=== PATIENT | female | born 1990 | race Caucasian/White ===

== ENCOUNTER → 2024-04-01 07:41 | Outpatient (REF) | payer OTHER, SELFPAY | LOC: PNTC 07:41 | PROVIDERS: ATTENDING PHYSICIAN Student in an Organized Health Care Education/Training Program | DX: Z36.0 Encounter for antenatal screening for chromosomal anomalies (principal); Z36.82 Encounter for antenatal screening for nuchal translucency | CPT/HCPCS: 36415; 76801; 76813 ==

== ENCOUNTER → 2024-05-27 15:22 | Outpatient (REF) | payer OTHER, SELFPAY | LOC: PNTC 15:22 | PROVIDERS: ATTENDING PHYSICIAN Student in an Organized Health Care Education/Training Program | DX: Z36.0 Encounter for antenatal screening for chromosomal anomalies (principal); Q27.0 Congenital absence and hypoplasia of umbilical artery; O28.3 Abnormal ultrasonic finding on antenatal screening of mother | CPT/HCPCS: 76811 ==

== ENCOUNTER → 2024-06-24 15:12 | Outpatient (REF) | payer OTHER, SELFPAY | LOC: PNTC 15:12 | PROVIDERS: ATTENDING PHYSICIAN Student in an Organized Health Care Education/Training Program | DX: Q27.0 Congenital absence and hypoplasia of umbilical artery (principal) | CPT/HCPCS: 76816 ==

== ENCOUNTER → 2024-07-22 16:15 | Outpatient (REF) | payer OTHER, SELFPAY | LOC: PNTC 16:15 | PROVIDERS: ATTENDING PHYSICIAN Obstetrics & Gynecology | DX: O69.2XX0 Labor and delivery complicated by other cord entanglement, with compression, not applicable or unspecified (principal); O69.5XX0 Labor and delivery complicated by vascular lesion of cord, not applicable or unspecified | CPT/HCPCS: 76816 ==

== ENCOUNTER 2024-07-25 10:17 | Emergency (ER) | payer SELFPAY ==
[2024-07-25 10:27] VITALS: BP 160/108
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
[2024-07-25 11:25] LABS: % Basophils 0.2 % (0-2); % Eosinophils 0.7 % (0-6); % Immature Granulocytes 0.5 % (0-0.5); % Lymphocytes 10.3 % (20.5-51.1); % Monocytes 5.5 % (1.7-9.3); % Neutrophils 82.8 % (42.2-75.2); Absolute Eosinophils 0.1 10^3/uL (0-0.7); Absolute Immature Granulocytes 0.1 10^3/uL (0-0.05); Absolute Lymphocytes 1.3 10^3/uL (1.2-3.4); Absolute Monocytes 0.7 10^3/uL (0.1-0.6); Hematocrit 30.6 % (37.0-47.0); Mean Corp Hgb Conc. 35.9 g/dL (33.0-37.0); Mean Corpuscular Hgb 30.6 pg (27.0-31.0); Mean Platelet Volume 10.2 fL (7.4-10.4); Nucleated Red Blood Cells % 0 %; Platelet Count 260 10^3/uL (130-400); Red Cell Dist. Width 12.6 % (11.5-14.5); White Blood Cell Count 12.1 10^3/uL (4.8-10.8)
[2024-07-25 11:31] LABS: ALT (SGPT) 21 U/L (0-35); AST (SGOT) 23 U/L (14-36); Albumin 3.5 g/dl (3.5-5.0); Alkaline Phosphatase 103 U/L (38-126); Blood Urea Nitrogen 10 mg/dl (7-17); Calcium 9.8 mg/dl (8.4-10.2); Carbon Dioxide 23 mmol/L (22-30); Chloride 106 mmol/L (98-107); Glucose 85 mg/dl (70-99); Potassium 3.2 mmol/L (3.5-5.1); Sodium 137 mmol/L (135-145); Total Bilirubin 0.3 mg/dl (0.2-1.3); eGFR > 60.00
[2024-07-25 12:00] VITALS: BP 154/96
[2024-07-25 12:00] LABS: Urine Albumin Negative (Neg - Trace); Urine Bilirubin Negative (Negative); Urine Color Straw; Urine Glucose Negative (Negative); Urine Ketone Negative (Negative); Urine Leukocyte Negative (Negative); Urine Nitrite Negative (Negative); Urine Occult Blood Negative (Negative); Urine Specific Gravity 1.005 (<1.030); Urine Urobilinogen Negative (Neg - 1+)
[2024-07-25 12:01] LABS: Urine Character Clear (Clear)
[2024-07-25 13:00] VITALS: BP 151/99
== END 2024-07-25 13:48 | disposition home or self-care (01) ==
LOC: EMR 10:17
PROVIDERS: EMERGENCY PHYSICIAN Student in an Organized Health Care Education/Training Program; FAMILY PHYSICIAN Family Medicine
DX: O16.3 Unspecified maternal hypertension, third trimester (principal); V49.00XA Driver injured in collision with unspecified motor vehicles in nontraffic accident, initial encounter; Z3A.29 29 weeks gestation of pregnancy
CPT/HCPCS: 99283; 80053; 81003; 85025

== ENCOUNTER 2024-07-28 10:22 | Inpatient (IN) | payer OTHER, SELFPAY ==
[2024-07-28 10:56] LABS: Hematocrit 30.9 % (37.0-47.0); Hemoglobin 10.8 g/dL (12.0-16.0); Mean Corpuscular Volume 85.8 fL (81.0-99.0); Mean Platelet Volume 10.1 fL (7.4-10.4); Platelet Count 255 10^3/uL (130-400); Red Cell Dist. Width 12.7 % (11.5-14.5); White Blood Cell Count 12.9 10^3/uL (4.8-10.8)
[2024-07-28 10:57] LABS: Urine Albumin Negative (Neg - Trace); Urine Bilirubin Negative (Negative); Urine Character Clear (Clear); Urine Color Yellow; Urine Glucose Negative (Negative); Urine Ketone Negative (Negative); Urine Leukocyte Negative (Negative); Urine Nitrite Negative (Negative); Urine Occult Blood Negative (Negative); Urine Specific Gravity 1.015 (<1.030); Urine Urobilinogen Negative (Neg - 1+)
[2024-07-28 11:07] LABS: ALT (SGPT) 19 U/L (0-35); AST (SGOT) 22 U/L (14-36); Albumin 3.5 g/dl (3.5-5.0); Alkaline Phosphatase 102 U/L (38-126); Blood Urea Nitrogen 9 mg/dl (7-17); Calcium 9.3 mg/dl (8.4-10.2); Carbon Dioxide 22 mmol/L (22-30); Chloride 106 mmol/L (98-107); Glucose 86 mg/dl (70-99); Potassium 2.9 mmol/L (3.5-5.1); Sodium 138 mmol/L (135-145); Total Bilirubin 0.2 mg/dl (0.2-1.3); Total Protein 6.1 g/dl (6.3-8.2); Uric Acid 4.1 mg/dl (2.5-6.2); eGFR > 60.00
[2024-07-28 11:19] LABS: Protein/creatinine Ratio 0.3; Urine Protein 22 mg/dl
[2024-07-28 11:21] VITALS: BP 156/97; BMI 30.6
[2024-07-28] MEDS: CELESTONE SOLUSPAN 2 MG IM (13:01)
[2024-07-28] MEDS: MAGNESIUM SULFATE 100 IV (13:27)
[2024-07-28] MEDS: LR 1000 IV (13:33)
[2024-07-28] MEDS: MAGNESIUM SULFATE 40 GRAM 1000 IV ×2 (13:47)
[2024-07-28] MEDS: TRANDATE 200 MG PO (14:24)
[2024-07-28] MEDS: KCL 40 MEQ PO (15:32)
== END 2024-07-28 22:35 | disposition short-term general hospital (02) | DRG 833 ==
LOC: LDRP 10:22
PROVIDERS: ADMITTING PHYSICIAN Obstetrics & Gynecology; ATTENDING PHYSICIAN Obstetrics & Gynecology
DX: O14.13 Severe pre-eclampsia, third trimester (principal); Z3A.29 29 weeks gestation of pregnancy; J45.990 Exercise induced bronchospasm; N97.9 Female infertility, unspecified; O99.283 Endocrine, nutritional and metabolic diseases complicating pregnancy, third trimester; E28.2 Polycystic ovarian syndrome
CPT/HCPCS: 76818; 80053; 81003; 82570; 84156; 84550; 85027; 86850; 86900; 86901; 87070; G0378

== ENCOUNTER 2024-08-04 19:03 | Observation (INO) | payer OTHER, SELFPAY ==
[2024-08-04 19:19] VITALS: BP 143/89; BMI 31.3
[2024-08-04 20:14] LABS: Urine Albumin Trace (Neg - Trace); Urine Bilirubin Negative (Negative); Urine Character Clear (Clear); Urine Color Yellow; Urine Glucose Negative (Negative); Urine Ketone Negative (Negative); Urine Leukocyte Negative (Negative); Urine Nitrite Negative (Negative); Urine Occult Blood Negative (Negative); Urine Specific Gravity 1.015 (<1.030); Urine Urobilinogen Negative (Neg - 1+); Urine pH 6.5 (5.0-9.0)
[2024-08-04 20:15] LABS: Hematocrit 30.7 % (37.0-47.0); Hemoglobin 10.8 g/dL (12.0-16.0); Mean Corp Hgb Conc. 35.2 g/dL (33.0-37.0); Mean Corpuscular Hgb 30.5 pg (27.0-31.0); Mean Corpuscular Volume 86.7 fL (81.0-99.0); Mean Platelet Volume 9.7 fL (7.4-10.4); Platelet Count 263 10^3/uL (130-400); Red Blood Cell Count 3.54 10^6/uL (4.20-5.40); Red Cell Dist. Width 12.7 % (11.5-14.5); White Blood Cell Count 13.7 10^3/uL (4.8-10.8)
[2024-08-04 20:34] LABS: ALT (SGPT) 14 U/L (0-35); AST (SGOT) 15 U/L (14-36); Albumin 3.6 g/dl (3.5-5.0); Alkaline Phosphatase 104 U/L (38-126); Blood Urea Nitrogen 11 mg/dl (7-17); Calcium 9.1 mg/dl (8.4-10.2); Carbon Dioxide 23 mmol/L (22-30); Chloride 103 mmol/L (98-107); Estimated Creatinine Clearance 111 ml/min; Glucose 109 mg/dl (70-99); Potassium 3.6 mmol/L (3.5-5.1); Sodium 134 mmol/L (135-145); Total Bilirubin 0.3 mg/dl (0.2-1.3); Total Protein 6.1 g/dl (6.3-8.2); eGFR > 60.00
[2024-08-04 20:35] LABS: Protein/creatinine Ratio 0.1; Urine Protein 14 mg/dl
[2024-08-05] MEDS: TRANDATE 200 MG PO (08:23)
[2024-08-05] MEDS: PRENATAL PLUS 1 TABLET PO (08:23)
[2024-08-05] MEDS: FEOSOL 325 MG PO (08:23)
== END 2024-08-05 11:43 | disposition home or self-care (01) ==
LOC: LDRP 19:03
PROVIDERS: ADMITTING PHYSICIAN Obstetrics & Gynecology; FAMILY PHYSICIAN Family Medicine
DX: O13.3 Gestational [pregnancy-induced] hypertension without significant proteinuria, third trimester (principal); Z3A.30 30 weeks gestation of pregnancy; N97.9 Female infertility, unspecified; O99.283 Endocrine, nutritional and metabolic diseases complicating pregnancy, third trimester; E28.2 Polycystic ovarian syndrome; J45.990 Exercise induced bronchospasm
CPT/HCPCS: 59899; 80053; 81003; 82570; 84156; 85027; G0378

== ENCOUNTER → 2024-08-12 14:24 | Outpatient (REF) | payer OTHER, SELFPAY | LOC: PNTC 14:24 | PROVIDERS: ATTENDING PHYSICIAN Obstetrics & Gynecology | DX: Q27.0 Congenital absence and hypoplasia of umbilical artery (principal); O13.3 Gestational [pregnancy-induced] hypertension without significant proteinuria, third trimester | CPT/HCPCS: 59025; 76815 ==

== ENCOUNTER 2024-08-19 16:21 | Observation (INO) | payer OTHER, SELFPAY ==
[2024-08-19 16:34] VITALS: BP 145/88; BMI 31.3
[2024-08-19 16:42] LABS: Hematocrit 32.7 % (37.0-47.0); Hemoglobin 11.4 g/dL (12.0-16.0); Mean Corp Hgb Conc. 34.9 g/dL (33.0-37.0); Mean Corpuscular Hgb 29.7 pg (27.0-31.0); Mean Corpuscular Volume 85.2 fL (81.0-99.0); Mean Platelet Volume 9.9 fL (7.4-10.4); Platelet Count 270 10^3/uL (130-400); Red Blood Cell Count 3.84 10^6/uL (4.20-5.40); Red Cell Dist. Width 12.9 % (11.5-14.5); White Blood Cell Count 12.5 10^3/uL (4.8-10.8)
[2024-08-19 17:09] LABS: Protein/creatinine Ratio 0.3; Urine Protein 18 mg/dl
[2024-08-19 17:37] LABS: ALT (SGPT) 13 U/L (0-35); AST (SGOT) 17 U/L (14-36); Alkaline Phosphatase 125 U/L (38-126); Blood Urea Nitrogen 6 mg/dl (7-17); Calcium 9.5 mg/dl (8.4-10.2); Carbon Dioxide 19 mmol/L (22-30); Chloride 104 mmol/L (98-107); Estimated Creatinine Clearance > 125 ml/min; Glucose 90 mg/dl (70-99); Potassium 3.5 mmol/L (3.5-5.1); Sodium 135 mmol/L (135-145); Total Bilirubin 0.6 mg/dl (0.2-1.3); Total Protein 6.5 g/dl (6.3-8.2); eGFR > 60.00
[2024-08-19] MEDS: CELESTONE SOLUSPAN 2 MG IM (20:19)
[2024-08-19] MEDS: TRANDATE 200 MG PO (20:34)
[2024-08-20 04:22] LABS: Hematocrit 30.9 % (37.0-47.0); Hemoglobin 11.1 g/dL (12.0-16.0); Mean Corp Hgb Conc. 35.9 g/dL (33.0-37.0); Mean Corpuscular Hgb 30.7 pg (27.0-31.0); Mean Corpuscular Volume 85.6 fL (81.0-99.0); Mean Platelet Volume 10.3 fL (7.4-10.4); Platelet Count 248 10^3/uL (130-400); Red Blood Cell Count 3.61 10^6/uL (4.20-5.40); Red Cell Dist. Width 12.5 % (11.5-14.5); White Blood Cell Count 13.2 10^3/uL (4.8-10.8)
[2024-08-20 04:47] LABS: ALT (SGPT) 13 U/L (0-35); AST (SGOT) 17 U/L (14-36); Albumin 3.7 g/dl (3.5-5.0); Alkaline Phosphatase 135 U/L (38-126); Blood Urea Nitrogen 7 mg/dl (7-17); Calcium 9.4 mg/dl (8.4-10.2); Carbon Dioxide 19 mmol/L (22-30); Chloride 106 mmol/L (98-107); Estimated Creatinine Clearance > 125 ml/min; Glucose 122 mg/dl (70-99); Potassium 3.7 mmol/L (3.5-5.1); Sodium 135 mmol/L (135-145); Total Bilirubin 0.7 mg/dl (0.2-1.3); Total Protein 6.1 g/dl (6.3-8.2); eGFR > 60.00
[2024-08-20] MEDS: TRANDATE 200 MG PO ×2 (08:08→19:55)
[2024-08-20] MEDS: PRENATAL PLUS 1 TABLET PO (08:08)
[2024-08-20] MEDS: FEOSOL 325 MG PO (08:08)
[2024-08-20] MEDS: CELESTONE SOLUSPAN 2 MG IM (19:55)
== END 2024-08-20 21:30 | disposition home or self-care (01) ==
LOC: LDRP 16:21
PROVIDERS: ADMITTING PHYSICIAN Student in an Organized Health Care Education/Training Program; ATTENDING PHYSICIAN Obstetrics & Gynecology
DX: O13.3 Gestational [pregnancy-induced] hypertension without significant proteinuria, third trimester (principal); Z3A.32 32 weeks gestation of pregnancy
CPT/HCPCS: 76816; 80053; 82570; 84156; 85027; G0378

== ENCOUNTER → 2024-08-26 13:42 | Outpatient (REF) | payer OTHER, SELFPAY | LOC: PNTC 13:42 | PROVIDERS: ATTENDING PHYSICIAN Obstetrics & Gynecology | DX: O69.5XX0 Labor and delivery complicated by vascular lesion of cord, not applicable or unspecified (principal); O13.9 Gestational [pregnancy-induced] hypertension without significant proteinuria, unspecified trimester | CPT/HCPCS: 59025; 76815 ==

== ENCOUNTER 2024-08-29 14:24 | Observation (INO) | payer OTHER, SELFPAY ==
[2024-08-29 14:36] VITALS: BMI 30.2
[2024-08-29 14:51] VITALS: BP 134/85
[2024-08-29 14:56] LABS: % Basophils 0.1 % (0-2); % Eosinophils 1.1 % (0-6); % Immature Granulocytes 0.5 % (0-0.5); % Lymphocytes 11.6 % (20.5-51.1); % Monocytes 5.9 % (1.7-9.3); % Neutrophils 80.8 % (42.2-75.2); Absolute Eosinophils 0.1 10^3/uL (0-0.7); Absolute Immature Granulocytes 0.1 10^3/uL (0-0.05); Absolute Lymphocytes 1.4 10^3/uL (1.2-3.4); Absolute Monocytes 0.7 10^3/uL (0.1-0.6); Absolute Neutrophils 9.8 10^3/uL (1.4-6.5); Hematocrit 31.2 % (37.0-47.0); Hemoglobin 11.3 g/dL (12.0-16.0); Mean Corp Hgb Conc. 36.2 g/dL (33.0-37.0); Mean Corpuscular Hgb 30.6 pg (27.0-31.0); Mean Corpuscular Volume 84.6 fL (81.0-99.0); Mean Platelet Volume 10.3 fL (7.4-10.4); Nucleated Red Blood Cells % 0 %; Platelet Count 257 10^3/uL (130-400); Red Blood Cell Count 3.69 10^6/uL (4.20-5.40); Red Cell Dist. Width 12.8 % (11.5-14.5); White Blood Cell Count 12.1 10^3/uL (4.8-10.8)
[2024-08-29 15:34] LABS: ALT (SGPT) 11 U/L (0-35); AST (SGOT) 16 U/L (14-36); Albumin 3.3 g/dl (3.5-5.0); Alkaline Phosphatase 125 U/L (38-126); Blood Urea Nitrogen 10 mg/dl (7-17); Calcium 9.9 mg/dl (8.4-10.2); Carbon Dioxide 21 mmol/L (22-30); Chloride 108 mmol/L (98-107); Estimated Creatinine Clearance 109 ml/min; Glucose 98 mg/dl (70-99); Potassium 3.5 mmol/L (3.5-5.1); Sodium 135 mmol/L (135-145); Total Bilirubin 0.3 mg/dl (0.2-1.3); Uric Acid 4.3 mg/dl (2.5-6.2); eGFR > 60.00
[2024-08-29 15:35] LABS: Urine Albumin 1+ (Neg - Trace); Urine Bilirubin Negative (Negative); Urine Character Clear (Clear); Urine Color Yellow; Urine Glucose Negative (Negative); Urine Ketone Negative (Negative); Urine Leukocyte 1+ (Negative); Urine Nitrite Negative (Negative); Urine Occult Blood Negative (Negative); Urine Urobilinogen Negative (Neg - 1+)
[2024-08-29 15:51] LABS: Urine Amorphous Seen; Urine Red Blood Cell 0-2 /HPF (0-2); Urine Squamous Cell >30 /LPF (Few)
[2024-08-29 15:52] LABS: Urine Bacteria Many (Negative)
[2024-08-29 16:01] LABS: Protein/creatinine Ratio 0.3; Urine Protein 23 mg/dl
[2024-08-29] MEDS: TRANDATE 200 MG PO (19:59)
[2024-08-30] MEDS: FLUSH (NSS) 1 FLUSH IV (04:09)
[2024-08-30 04:22] LABS: Hematocrit 30.5 % (37.0-47.0); Hemoglobin 10.8 g/dL (12.0-16.0); Mean Corp Hgb Conc. 35.4 g/dL (33.0-37.0); Mean Corpuscular Hgb 29.9 pg (27.0-31.0); Mean Corpuscular Volume 84.5 fL (81.0-99.0); Mean Platelet Volume 10.1 fL (7.4-10.4); Platelet Count 232 10^3/uL (130-400); Red Blood Cell Count 3.61 10^6/uL (4.20-5.40); Red Cell Dist. Width 12.8 % (11.5-14.5); White Blood Cell Count 12.7 10^3/uL (4.8-10.8)
[2024-08-30 04:50] LABS: ALT (SGPT) < 10 U/L (0-35); AST (SGOT) 14 U/L (14-36); Albumin 3.2 g/dl (3.5-5.0); Alkaline Phosphatase 129 U/L (38-126); Blood Urea Nitrogen 10 mg/dl (7-17); Calcium 9.1 mg/dl (8.4-10.2); Carbon Dioxide 22 mmol/L (22-30); Chloride 106 mmol/L (98-107); Estimated Creatinine Clearance 109 ml/min; Glucose 83 mg/dl (70-99); Potassium 3.1 mmol/L (3.5-5.1); Sodium 135 mmol/L (135-145); Total Bilirubin 0.6 mg/dl (0.2-1.3); Total Protein 5.6 g/dl (6.3-8.2); eGFR > 60.00
[2024-08-30] MEDS: FEOSOL 325 MG PO (07:31)
[2024-08-30] MEDS: TRANDATE 200 MG PO (07:32)
[2024-08-30] MEDS: PRENATAL PLUS 1 TABLET PO (07:32)
== END 2024-08-30 10:45 | disposition home or self-care (01) ==
LOC: LDRP 14:24
PROVIDERS: ADMITTING PHYSICIAN Student in an Organized Health Care Education/Training Program; FAMILY PHYSICIAN Obstetrics & Gynecology
DX: O13.3 Gestational [pregnancy-induced] hypertension without significant proteinuria, third trimester (principal); Z3A.34 34 weeks gestation of pregnancy; Q27.0 Congenital absence and hypoplasia of umbilical artery; N97.9 Female infertility, unspecified; O99.283 Endocrine, nutritional and metabolic diseases complicating pregnancy, third trimester; E28.2 Polycystic ovarian syndrome; J45.990 Exercise induced bronchospasm; R79.89 Other specified abnormal findings of blood chemistry; K76.0 Fatty (change of) liver, not elsewhere classified; R16.0 Hepatomegaly, not elsewhere classified; O41.03X0 Oligohydramnios, third trimester, not applicable or unspecified; Z90.49 Acquired absence of other specified parts of digestive tract; Z80.3 Family history of malignant neoplasm of breast; Z80.8 Family history of malignant neoplasm of other organs or systems; Z82.49 Family history of ischemic heart disease and other diseases of the circulatory system; Z83.49 Family history of other endocrine, nutritional and metabolic diseases
CPT/HCPCS: 76819; 80053; 81003; 81015; 82570; 84156; 84550; 85025; 85027; 86850; 86900; 86901; G0378

== ENCOUNTER 2024-09-02 14:47 | Observation (INO) | payer OTHER, SELFPAY ==
[2024-09-02 15:09] VITALS: BP 150/99; BMI 30.2
[2024-09-02 15:10] LABS: Hematocrit 32.8 % (37.0-47.0); Hemoglobin 11.6 g/dL (12.0-16.0); Mean Corp Hgb Conc. 35.4 g/dL (33.0-37.0); Mean Corpuscular Hgb 29.7 pg (27.0-31.0); Mean Corpuscular Volume 83.9 fL (81.0-99.0); Mean Platelet Volume 9.9 fL (7.4-10.4); Platelet Count 253 10^3/uL (130-400); Red Blood Cell Count 3.91 10^6/uL (4.20-5.40); White Blood Cell Count 11.8 10^3/uL (4.8-10.8)
[2024-09-02 15:25] LABS: ALT (SGPT) 11 U/L (0-35); AST (SGOT) 16 U/L (14-36); Albumin 3.4 g/dl (3.5-5.0); Alkaline Phosphatase 128 U/L (38-126); Blood Urea Nitrogen 8 mg/dl (7-17); Calcium 9.6 mg/dl (8.4-10.2); Carbon Dioxide 23 mmol/L (22-30); Chloride 104 mmol/L (98-107); Estimated Creatinine Clearance 109 ml/min; Glucose 97 mg/dl (70-99); Potassium 3.4 mmol/L (3.5-5.1); Sodium 134 mmol/L (135-145); Total Bilirubin 0.4 mg/dl (0.2-1.3); Total Protein 6.2 g/dl (6.3-8.2); eGFR > 60.00
[2024-09-02 15:29] LABS: Protein/creatinine Ratio 0.5; Urine Protein 17 mg/dl
== END 2024-09-02 16:16 | disposition home or self-care (01) ==
LOC: PNTC-IN 14:47
PROVIDERS: ADMITTING PHYSICIAN Obstetrics & Gynecology; ATTENDING PHYSICIAN Obstetrics & Gynecology
DX: O35.8XX0 Maternal care for other (suspected) fetal abnormality and damage, not applicable or unspecified (principal); O13.3 Gestational [pregnancy-induced] hypertension without significant proteinuria, third trimester; Z3A.34 34 weeks gestation of pregnancy
CPT/HCPCS: 59025; 76815; 80053; 82570; 84156; 85027; G0378

== ENCOUNTER 2024-09-04 09:51 | Inpatient (IN) | payer OTHER, SELFPAY ==
[2024-09-04 10:06] VITALS: BP 150/94; BMI 31.1
[2024-09-04 10:46] LABS: Hematocrit 32.4 % (37.0-47.0); Hemoglobin 11.4 g/dL (12.0-16.0); Mean Corp Hgb Conc. 35.2 g/dL (33.0-37.0); Mean Corpuscular Hgb 29.6 pg (27.0-31.0); Mean Corpuscular Volume 84.2 fL (81.0-99.0); Mean Platelet Volume 10.4 fL (7.4-10.4); Platelet Count 257 10^3/uL (130-400); Red Blood Cell Count 3.85 10^6/uL (4.20-5.40); White Blood Cell Count 10.4 10^3/uL (4.8-10.8)
[2024-09-04 10:59] LABS: ALT (SGPT) 11 U/L (0-35); AST (SGOT) 15 U/L (14-36); Albumin 3.3 g/dl (3.5-5.0); Alkaline Phosphatase 133 U/L (38-126); Blood Urea Nitrogen 7 mg/dl (7-17); Calcium 9.4 mg/dl (8.4-10.2); Carbon Dioxide 23 mmol/L (22-30); Chloride 105 mmol/L (98-107); Estimated Creatinine Clearance 111 ml/min; Glucose 110 mg/dl (70-99); Potassium 3.1 mmol/L (3.5-5.1); Sodium 136 mmol/L (135-145); Total Bilirubin 0.3 mg/dl (0.2-1.3); Total Protein 5.9 g/dl (6.3-8.2); eGFR > 60.00
[2024-09-04 11:16] LABS: Urine Protein 20 mg/dl
[2024-09-04 11:42] LABS: Protein/creatinine Ratio 0.6
[2024-09-04] MEDS: LR 1000 IV (15:31)
[2024-09-04] MEDS: MAGNESIUM SULFATE 100 IV (15:32)
[2024-09-04] MEDS: ZOFRAN 4 MG IV (15:35)
[2024-09-04] MEDS: MAGNESIUM SULFATE 40 GRAM 1000 IV (15:51)
[2024-09-04] MEDS: CYTOTEC 25 MICROGRAM VAG (15:56)
--- NOTE | 2024-09-04 17:57 | CON.NEO ---
Consultation
-
Date/Time Consultation Requested: 09/04/2024
Date/Time Consultation Performed: 09/04/2024 @1715
Requesting Provider: Dr. Conn
Performing Provider: Dr. Kimbrough
Reason for Consultation: anticipated delivery
Consultation - Neonatology
Maternal Labs
Blood Type: B Positive
Antibody Screen: Negative
RPR: Nonreactive
Rubella: Immune
Hep B S Ag: Negative
Hep C: Negative
HIV: Nonreactive
Group B Strep: Unknown
Chlamydia/GC: Negative
Consult
Mother admitted for IOL due to gestational hypertension.
Mother has been previously admitted for gHTN, first at 29 weeks. She received magnesium and was started on Labetalol. She received betamethasone x 2 doses.
Due to continued concern for delivery, a rescue dose of betamethasone was given on 08/19/2024.
complications include - gestational hypertension, 2 vessel cord, intracardiac echogenic focus, asthma, PCOS, arthritis, infertility ( 2 failed IUI)
Due to induction of labor at 35 weeks and impending delivery, I was asked by OB team to discuss with family the likely ICN course.
In the room was mother, father of baby and mother's mother. Mother provided verbal consent to discuss with these family members in the room.
Mother reports that she is expecting a female and plans to name her Florencio.
Points discussed at consult:
- Management at delivery including the possibility of CPAP/intubation/surfactant discussed
- Respiratory: RDS possibility with possibility of worsening for 24-48 hrs, management including CPAP/surfactant/ventilator support may be required
- Nutrition: Hypoglycemia, need for IV fluids, gradual feed advance, Gavage feeding, importance of colostrum feeding, initiation of expression of colostrum within 3-4 hours, availability of donor milk, safety fo donor milk etc. were discussed.
Mother provided verbal consent for donor milk use.
- Procedures: Intubation, CPAP, IV placement, blood tests, umbilical arterial or venous lines, gavage feedings were discussed
- Jaundice possibility and need for phototherapy discussed
- Family Centered Care: Discussed FCC with emphasis on parental participation during sign off and during management rounds and is encouraged. Availability of murtaza eyes camera also discussed. We discussed skin to skin time and encouraged family to
visit in the ICN as often as they want.
Mom and Dad were given the opportunity to ask questions throughout and open invitation to call if any questions come as they absorb all the information given so far.
Time for consult:
Review of chart 15 minutes, time with family 20 minutes. Documentation 10 minutes.
Face to Face Time
Total Wjha-nl-Epky Time (in Minutes): 20
[2024-09-04] MEDS: TYLENOL 1000 MG PO (19:38)
[2024-09-04] MEDS: TRANDATE 200 MG PO (20:11)
[2024-09-04] MEDS: CYTOTEC 50 MICROGRAM PO (20:30)
[2024-09-04] MEDS: PRENATAL PLUS 1 TABLET PO (22:03)
[2024-09-05] MEDS: CYTOTEC 50 MICROGRAM PO ×3 (00:37→10:12)
[2024-09-05] MEDS: LR 1000 IV ×2 (03:57→15:35)
[2024-09-05 06:04] LABS: Hematocrit 33.3 % (37.0-47.0); Hemoglobin 11.7 g/dL (12.0-16.0); Mean Corp Hgb Conc. 35.1 g/dL (33.0-37.0); Mean Corpuscular Hgb 29.7 pg (27.0-31.0); Mean Corpuscular Volume 84.5 fL (81.0-99.0); Mean Platelet Volume 10.2 fL (7.4-10.4); Platelet Count 250 10^3/uL (130-400); Red Blood Cell Count 3.94 10^6/uL (4.20-5.40); Red Cell Dist. Width 12.8 % (11.5-14.5); White Blood Cell Count 12.1 10^3/uL (4.8-10.8)
[2024-09-05 07:11] LABS: ALT (SGPT) 11 U/L (0-35); AST (SGOT) 16 U/L (14-36); Albumin 3.8 g/dl (3.5-5.0); Alkaline Phosphatase 177 U/L (38-126); Blood Urea Nitrogen 5 mg/dl (7-17); Calcium 7.9 mg/dl (8.4-10.2); Carbon Dioxide 20 mmol/L (22-30); Chloride 101 mmol/L (98-107); Estimated Creatinine Clearance 97 ml/min; Glucose 110 mg/dl (70-99); Potassium 3.4 mmol/L (3.5-5.1); Sodium 132 mmol/L (135-145); Total Bilirubin 0.7 mg/dl (0.2-1.3); Total Protein 6.3 g/dl (6.3-8.2); eGFR > 60.00
[2024-09-05] MEDS: TRANDATE 200 MG PO ×2 (08:03→20:09)
[2024-09-05] MEDS: FEOSOL 325 MG PO (08:03)
[2024-09-05] MEDS: MAGNESIUM SULFATE 40 GRAM 1000 IV (10:12)
[2024-09-05] MEDS: ANCEF 10 IV (15:34)
[2024-09-05] MEDS: TYLENOL 1000 MG PO (15:34)
[2024-09-05] MEDS: BICITRA 30 ML PO (15:34)
[2024-09-05 16:11] LABS: Cord ABG Comment CORD BLOOD
[2024-09-05 16:18] LABS: B.E. Cord ABG -0.7 mMOL/L; HCO3 Cord ABG 25.4 mmol/L; O2 Saturation % Cord ABG 34.6 %; PCO2 Cord ABG 46 mmHg; PO2 Cord ABG 21 mmHg; pH Cord ABG 7.35
[2024-09-05] MEDS: PITOCIN 30 UNITS/NSS 500 ML IV (17:01)
[2024-09-05] MEDS: MORPHINE SULFATE 2 MG IV (17:26)
[2024-09-05] MEDS: CYTOTEC PO ×2 (18:41→18:42)
[2024-09-05] MEDS: TORADOL 15 MG IV (22:09)
[2024-09-05] MEDS: ZOFRAN 4 MG IV (22:09)
[2024-09-05] MEDS: PRENATAL PLUS PO (22:10)
[2024-09-06] MEDS: TORADOL 15 MG IV ×3 (04:14→16:09)
[2024-09-06] MEDS: ZOFRAN 4 MG IV (04:26)
[2024-09-06 05:14] LABS: Hemoglobin 10.9 g/dL (12.0-16.0); Mean Corp Hgb Conc. 35.2 g/dL (33.0-37.0); Mean Corpuscular Hgb 30.1 pg (27.0-31.0); Mean Corpuscular Volume 85.6 fL (81.0-99.0); Mean Platelet Volume 10.3 fL (7.4-10.4); Platelet Count 233 10^3/uL (130-400); Red Blood Cell Count 3.62 10^6/uL (4.20-5.40); Red Cell Dist. Width 12.6 % (11.5-14.5); White Blood Cell Count 14.4 10^3/uL (4.8-10.8)
[2024-09-06] MEDS: MAGNESIUM SULFATE 40 GRAM 1000 IV (06:58)
[2024-09-06] MEDS: TRANDATE 200 MG PO (08:13)
[2024-09-06] MEDS: FEOSOL 325 MG PO (08:13)
[2024-09-06] MEDS: LR 1000 IV (09:12)
[2024-09-06 09:26] LABS: ALT (SGPT) < 10 U/L (0-35); AST (SGOT) 21 U/L (14-36); Alkaline Phosphatase 146 U/L (38-126); Blood Urea Nitrogen 7 mg/dl (7-17); Calcium 6.2 mg/dl (8.4-10.2); Carbon Dioxide 27 mmol/L (22-30); Chloride 99 mmol/L (98-107); Estimated Creatinine Clearance 86 ml/min; Glucose 93 mg/dl (70-99); Magnesium 8.6 mg/dl (1.6-2.3); Potassium 3.7 mmol/L (3.5-5.1); Sodium 130 mmol/L (135-145); Total Bilirubin 0.4 mg/dl (0.2-1.3); Total Protein 5.4 g/dl (6.3-8.2); eGFR > 60.00
--- NOTE | 2024-09-06 12:46 | W.PN.ANS.POP ---
Anesthesia Post Operative
- Anesthesia Post Op Note
Vital Signs Stable-See Nursing Note: Yes
Airway Patent: Yes
Adequate Pain Control: Yes
Change in Mental Status: No
Current Postoperative Nausea & Vomiting: No
Anesthesia Complications: No
General Anesthetic Recall: No
Unplanned Admission: No
Post Op Hydration Adequate: Yes
- -
Pt doing well as per RN, remains on Mag Sulfate with plans to wean off today.
[2024-09-06] MEDS: TRANDATE 300 MG PO (18:46)
[2024-09-06] MEDS: TYLENOL 650 MG PO (22:31)
[2024-09-06] MEDS: MOTRIN 600 MG PO (22:31)
[2024-09-06] MEDS: MYLICON 80 MG PO (22:31)
[2024-09-06] MEDS: PRENATAL PLUS 1 TABLET PO (22:32)
[2024-09-07] MEDS: TYLENOL 650 MG PO ×3 (04:33→23:58)
[2024-09-07] MEDS: MOTRIN 600 MG PO ×3 (04:34→23:58)
[2024-09-07] MEDS: TRANDATE 400 MG PO ×2 (05:23→20:00)
[2024-09-07 05:51] LABS: ALT (SGPT) 11 U/L (0-35); AST (SGOT) 18 U/L (14-36); Albumin 3.1 g/dl (3.5-5.0); Alkaline Phosphatase 127 U/L (38-126); Blood Urea Nitrogen 14 mg/dl (7-17); Calcium 8.4 mg/dl (8.4-10.2); Carbon Dioxide 27 mmol/L (22-30); Chloride 102 mmol/L (98-107); Estimated Creatinine Clearance 78 ml/min; Glucose 83 mg/dl (70-99); Potassium 3.3 mmol/L (3.5-5.1); Sodium 134 mmol/L (135-145); Total Bilirubin 0.5 mg/dl (0.2-1.3); Total Protein 5.4 g/dl (6.3-8.2); eGFR > 60.00
[2024-09-07] MEDS: FEOSOL 325 MG PO (08:51)
[2024-09-07] MEDS: SENOKOT-S 1 TABLET PO (08:51)
[2024-09-07] MEDS: PROCARDIA XL (EXTENDED RELEASE) 30 MG PO (09:01)
--- NOTE | 2024-09-07 12:39 | CON.CAR ---
Addendum entered and electronically signed by Yoshi Hogan MD 09/07/24 13:21:
Updated BP 130/81. Will keep nifedipine at 30 mg daily.
Original Note:
Consultation
Consultation Request
Date/Time Consultation Requested: 09/07/2024 at 8:43 AM
Date/Time Consultation Performed: 09/07/2024 at 11:30 AM
Requesting Provider: Serge Palomo MD
Performing Provider: Yoshi Hogan MD
Reason for Consultation: preeclampsia
Medical History
-
Chief Complaint: High blood pressure
History of Present Illness:
Lamar Arthur is a 33-year-old female with preeclampsia with severe features diagnosed ~3 months ago at 29 weeks gestation. She was started on labetalol 200 mg twice daily and blood pressures were well-controlled until recently when they increased
again and she was delivered by 2 days ago at 35 weeks gestation. Her labetalol has now been increased to 400 mg twice daily and blood pressures are persistently elevated in the 140s�150s/90s�100s. She had a black spot in her vision
yesterday but otherwise has been asymptomatic. She denies chest pain, headaches, and lower extremity edema. ECG reveals normal sinus rhythm with no evidence of ischemia.
Past Medical History
Past Medical History: Other (As above)
Social History
Living: With Family
Allergies / Home Medications
Allergy/AdvReac Type Severity Reaction Status Date / Time
No Known Allergies Allergy Verified 09/04/24 10:45
�Medication �Instructions �Recorded �Confirmed �Type
ferrous sulfate 325 mg (65 mg 325 mg PO DAILY Supplement 07/28/24 09/04/24 History
iron) tablet (Iron (ferrous
sulfate))
vitamin-ferrous fumarate 1 tab PO HS Supplement 07/28/24 09/04/24 History
28 mg iron-folic acid 800 mcg
tablet ( Tablet)
labetalol 200 mg PO BID Blood Pressure 08/04/24 09/04/24 History
Review of Systems
-
All other systems: Negative unless noted
Physical Exam
Vital Signs
Temp Pulse Resp BP
98.6 F 67 18 159/101
09/04/24 10:06 09/07/24 09:01 09/04/24 10:06 09/07/24 09:01
Lab Results
09/06/24 04:39
09/07/24 05:16
Physical Exam
General: Well Developed, Well Nourished and No Apparent Distress
HEENT: Normocephalic and Anicteric
Respiratory: Clear
Cardiac: S1/S2 and Regular Rhythm; Negative Murmur or Peripheral Edema
Neuro: AO x 3
Impression / Plan
-
33-year-old female with preeclampsia with severe features, now status post delivery by at 35 weeks with persistently elevated blood pressures.
Preeclampsia with severe features
-S/p Mg infusion
-She is asymptomatic. Goal BP is less than 140/90
-Continue labetalol 400 mg twice daily
-She received 30 mg nifedipine at 9 AM. Will ask for repeat BP and if still above goal, will give an additional 30 mg and increase tomorrow's dose to 60 mg daily
-Echocardiogram tomorrow
Data Reviewed
-
EKG: Tracing Personally Visualized and interpreted
Labs: Labs Reviewed by me and Discussed with Patient
[2024-09-07] MEDS: PRENATAL PLUS 1 TABLET PO (23:58)
[2024-09-08] MEDS: ADALAT 10 MG PO (04:52)
[2024-09-08 05:27] LABS: Hematocrit 30.7 % (37.0-47.0); Hemoglobin 10.4 g/dL (12.0-16.0); Mean Corp Hgb Conc. 33.9 g/dL (33.0-37.0); Mean Corpuscular Hgb 30.2 pg (27.0-31.0); Mean Corpuscular Volume 89.2 fL (81.0-99.0); Mean Platelet Volume 10.1 fL (7.4-10.4); Platelet Count 242 10^3/uL (130-400); Red Blood Cell Count 3.44 10^6/uL (4.20-5.40); White Blood Cell Count 9.1 10^3/uL (4.8-10.8)
[2024-09-08 05:49] LABS: ALT (SGPT) 14 U/L (0-35); AST (SGOT) 21 U/L (14-36); Albumin 3.2 g/dl (3.5-5.0); Alkaline Phosphatase 119 U/L (38-126); Blood Urea Nitrogen 16 mg/dl (7-17); Calcium 9.7 mg/dl (8.4-10.2); Carbon Dioxide 26 mmol/L (22-30); Chloride 103 mmol/L (98-107); Estimated Creatinine Clearance 78 ml/min; Glucose 83 mg/dl (70-99); Potassium 3.4 mmol/L (3.5-5.1); Sodium 138 mmol/L (135-145); Total Bilirubin 0.7 mg/dl (0.2-1.3); Total Protein 5.7 g/dl (6.3-8.2); eGFR > 60.00
[2024-09-08] MEDS: MOTRIN 600 MG PO ×2 (08:36→19:47)
[2024-09-08] MEDS: FEOSOL 325 MG PO (08:36)
[2024-09-08] MEDS: PROCARDIA XL (EXTENDED RELEASE) 30 MG PO ×2 (08:36→17:06)
[2024-09-08] MEDS: TRANDATE 400 MG PO ×2 (08:36→18:14)
[2024-09-08] MEDS: SENOKOT-S 1 TABLET PO (08:36)
[2024-09-08] MEDS: TYLENOL 650 MG PO ×2 (08:37→19:47)
--- NOTE | 2024-09-08 08:41 | W.PN.CD ---
Today's Communication / Plan
-
Extra dose of nifedipine 30 mg at 6 PM
Increase nifedipine to 60 mg for tomorrow's dose
Continue labetalol 400 mg twice daily
Follow-up echo
Impression / Plan
-
33-year-old female with preeclampsia with severe features, now status post delivery by at 35 weeks with persistently elevated blood pressures.
Preeclampsia with severe features
-S/p Mg infusion
-She is asymptomatic. Goal BP is less than 140/90
-Continue labetalol 400 mg twice daily
-Increase Nifedipine to 60mg daily. Will give an extra 30mg this afternoon
-Echocardiogram today
Subjective: She remains asymptomatic from a cardiovascular standpoint. BP elevated this a.m. so received short acting nifedipine 10 mg.
Physical Exam
Vital Signs/Labs
Vital Signs
Temp Pulse Resp BP
98.6 F 51 18 174/96
09/04/24 10:06 09/08/24 04:52 09/04/24 10:06 09/08/24 04:52
09/08/24 04:56
09/08/24 04:56
Magnesium 8.6 mg/dl (1.6-2.3) H* 09/06/24 08:34
Physical Exam
Constitutional: No acute distress and Comfortable
Cardiovascular: Rhythm & rate is regular, Pedal edema is absent, S1S2 is normal and Murmur/rub/gallop absent
Respiratory: Respiratory effort normal and Lungs clear to auscul.
Neuro/Psych: AO x 3
Data Reviewed
-
Date of Service: September 08, 2024
Medical Decision Making: Reviewed Test Results, Independent Historian Assessment, Test Interpretation and Review of Case with other Provider
Echo: Tracing Personally Visualized and interpreted
Labs: Labs Reviewed by me
[2024-09-08] MEDS: PRENATAL PLUS 1 TABLET PO (19:46)
[2024-09-09] MEDS: PROCARDIA XL (EXTENDED RELEASE) 60 MG PO (04:54)
[2024-09-09] MEDS: FEOSOL 325 MG PO (08:36)
[2024-09-09] MEDS: MOTRIN 600 MG PO (08:36)
[2024-09-09] MEDS: SENOKOT-S 1 TABLET PO (08:36)
[2024-09-09] MEDS: TRANDATE 400 MG PO ×2 (08:36→16:39)
[2024-09-09] MEDS: TYLENOL 650 MG PO (08:36)
--- NOTE | 2024-09-09 09:23 | W.PN.CD ---
Today's Communication / Plan
-
Cont nifedipine 60
Increase labetalol to tid
Impression / Plan
-
33-year-old female with preeclampsia with severe features, now status post delivery by at 35 weeks with persistently elevated blood pressures.
Preeclampsia with severe features
-S/p Mg infusion
-She is asymptomatic. Goal BP is less than 140/90
-Increase labetalol 400 mg to tid
- Nifedipine to 60mg daily.
-Echocardiogram today
Subjective: She remains asymptomatic from a cardiovascular standpoint. BP improved with early dose of nifedipine
Echo: CONCLUSIONS
Normal biventricular size and systolic function without regional wall motion
abnormality. Estimated LVEF 60-65%.
Mild concentric left ventricular hypertrophy.
No significant valve disease.
Trivial pericardial effusion.
No prior study available for comparison.
Physical Exam
Vital Signs/Labs
Vital Signs
Temp Pulse Resp BP
98.6 F 94 18 139/92
09/04/24 10:06 09/09/24 08:36 09/04/24 10:06 09/09/24 08:36
09/08/24 04:56
09/08/24 04:56
Magnesium 8.6 mg/dl (1.6-2.3) H* 09/06/24 08:34
Physical Exam
Constitutional: No acute distress and Comfortable
EENT: Anicteric
Cardiovascular: Rhythm & rate is regular
Respiratory: Respiratory effort normal and Lungs clear to auscul.
GI: Soft
Neuro/Psych: AO x 3
Data Reviewed
-
Date of Service: September 09, 2024
EKG: Tracing Personally Visualized and interpreted (sr)
Echo: Report Reviewed by me
Labs: Labs Reviewed by me
--- NOTE | 2024-09-09 11:26 | W.DS.TRANS ---
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
-
Discharge Instructions:
Discharge Diagnosis/Procedures 35 wks, Preeclampsia with severe
features, 2 vessel cord
Instructions:
Stand-Alone Forms: LDRP Delivery
LDRP Hypertensive Disorders
Changes to Home Medications: No
Discharge Medications:
DC Medications w/original date entered in [facility]
ferrous sulfate 325 mg (65 mg iron) tablet (Iron (ferrous sulfate)) 325 mg PO DAILY Supplement 07/28/24
vitamin-ferrous fumarate 28 mg iron-folic acid 800 mcg tablet ( Tablet) 1 tab PO HS Supplement 07/28/24
ibuprofen 600 mg tablet 600 mg PO Q6HPRN PRN cramps #90 tabs 09/09/24
labetalol 200 mg tablet 400 mg (2 x 200 mg) PO TID #90 tabs 09/09/24
nifedipine 60 mg tablet,extended release 60 mg PO DAILY #42 tabs 09/09/24
Home Medication Changes
Pending Results: No
Total time spent discharging patient (in min): 20
[2024-09-09 14:27] LABS: Syphilis/T. pallidum Ab Reflex Negative (Negative)
== END 2024-09-09 18:57 | disposition home or self-care (01) | DRG 788 ==
LOC: LDRP 09:51
PROVIDERS: Obstetrics & Gynecology; ADMITTING PHYSICIAN Student in an Organized Health Care Education/Training Program
PROC: 10D00Z1 Extraction of Products of Conception, Low, Open Approach (ICD-10-PCS; 2024-09-05)
DX: O13.4 Gestational [pregnancy-induced] hypertension without significant proteinuria, complicating childbirth (principal); O14.14 Severe pre-eclampsia complicating childbirth; O69.81X0 Labor and delivery complicated by cord around neck, without compression, not applicable or unspecified; Z3A.35 35 weeks gestation of pregnancy; Z37.0 Single live birth; O69.89X0 Labor and delivery complicated by other cord complications, not applicable or unspecified; O76 Abnormality in fetal heart rate and rhythm complicating labor and delivery
CPT/HCPCS: 88307; 76819; 80053; 82570; 82803; 83735; 84156; 85027; 86780; 86850; 86900; 86901; 87070; 93005; 93306

== ENCOUNTER → 2025-04-06 17:01 | Outpatient (REF) | payer OTHER, SELFPAY | LOC: PNTC 17:01 | PROVIDERS: ATTENDING PHYSICIAN Obstetrics & Gynecology | DX: Z32.01 Encounter for pregnancy test, result positive (principal) | CPT/HCPCS: 76801 ==

== ENCOUNTER → 2025-04-30 13:40 | Outpatient (REF) | payer OTHER, SELFPAY | LOC: PNTC 13:40 | PROVIDERS: ATTENDING PHYSICIAN Obstetrics & Gynecology | DX: Z36.0 Encounter for antenatal screening for chromosomal anomalies (principal); Z36.82 Encounter for antenatal screening for nuchal translucency | CPT/HCPCS: 36415; 76801; 76813 ==

== ENCOUNTER → 2025-05-26 10:22 | Outpatient (REF) | payer OTHER, SELFPAY | LOC: PNTC 10:22 | PROVIDERS: ATTENDING PHYSICIAN Obstetrics & Gynecology | DX: Z87.59 Personal history of other complications of pregnancy, childbirth and the puerperium (principal); O34.211 Maternal care for low transverse scar from previous cesarean delivery; O09.92 Supervision of high risk pregnancy, unspecified, second trimester | CPT/HCPCS: 76805 ==

== ENCOUNTER → 2025-06-22 15:57 | Outpatient (REF) | payer OTHER, SELFPAY | LOC: PNTC 15:57 | PROVIDERS: ATTENDING PHYSICIAN Obstetrics & Gynecology | DX: Z36.3 Encounter for antenatal screening for malformations (principal); Z36.86 Encounter for antenatal screening for cervical length; Z87.59 Personal history of other complications of pregnancy, childbirth and the puerperium; O34.211 Maternal care for low transverse scar from previous cesarean delivery; O09.92 Supervision of high risk pregnancy, unspecified, second trimester | CPT/HCPCS: 76811; 76817 ==